=== PATIENT | male | born 1960 | race Caucasian/White ===

== ENCOUNTER → 2016-09-18 | Outpatient (CLI) | payer SELFPAY ==
[~2016-09-18] MED LIST: DILANTIN 100MG100 MG PO
== END ==
LOC: COL.RAD 11:13
DX: R07.89 Other chest pain (principal)

== ENCOUNTER → 2016-09-26 | Outpatient (CLI) | payer SELFPAY | LOC: COL.RAD 12:17 | DX: K80.80 Other cholelithiasis without obstruction (principal) | CPT/HCPCS: Q9967 ==

== ENCOUNTER 2017-05-23 11:32 | Emergency (ER) | payer SELFPAY ==
[2017-05-23 11:36] VITALS: TEMP 98.2
[2017-05-23 12:40] LABS: COLLECTION METHOD CLEAN CATCH
[2017-05-23 12:47] LABS: BASO # 0.1 (0.0-0.2); BASO % 2.2 % (0.0-2.0); EOS # 0.1 (0.0-0.7); EOS % 0.8 % (0-4.0); GRAN # 3.9 (1.4-6.5); GRAN % 65.6 % (42.2-75.2); HEMATOCRIT 40.4 % (42.0-52.0); HEMOGLOBIN 13.6 g/dl (13.5-18.0); LYMPH # 0.9 (1.2-3.4); LYMPH % 14.3 % (20.0-51.0); MEAN CELL VOLUME 98 fl (80.0-100.0); MEAN CORPUSCULAR HEMOGLOBIN 33 pg (27.0-31.0); MEAN CORPUSCULAR HGB CONC 34 g/dl (33.0-37.0); MONO % 16.3 % (1.7-9.3); PLATELET COUNT 100 K/mm3 (130-400); RED BLOOD COUNT 4.11 M/mm3 (4.20-5.60); REDCELL DISTRIBUTION WIDTH-CV 13.8 % (11.5-14.5)
[2017-05-23 12:56] LABS: ALANINE AMINOTRANSFERASE 51 U/L (21-72); ALBUMIN 4.5 gm/dL (3.5-5.0); ALKALINE PHOSPHATASE 110 U/L (50-136); ANION GAP 11 mmol/L (7-16); AST,SGOT 61 U/L (15-37); BILIRUBIN,TOTAL 0.8 mg/dL (0.0-1.0); BLOOD UREA NITROGEN 10 mg/dL (9-20); C-REACTIVE PROTEIN 0.6 mg/dL (0.0-0.9); CALCIUM 9.2 mg/dL (8.4-10.2); CARBON DIOXIDE 23 mmol/L (22-30); CHLORIDE 98 mmol/L (98-107); CREATININE, serum 0.82 mg/dL (0.66-1.25); GLUCOSE 177 mg/dL (74-106); MAGNESIUM 1.9 mg/dL (1.6-2.3); SODIUM 132 mmol/L (137-145)
[2017-05-23 12:57] LABS: MUCOUS Present /lpf; PH 6 (5-8); SQUAMOUS EPITHELIAL 0-2 /hpf; URINE APPEARANCE Cloudy; URINE BILIRUBIN Negative (NEGATIVE); URINE BLOOD 1+ (NEGATIVE); URINE COLOR Yellow; URINE GLUCOSE 3+ (NEGATIVE); URINE KETONE Negative (NEGATIVE); URINE LEUKOCYTE ESTERASE Negative (NEGATIVE); URINE NITRATE Negative (NEGATIVE); URINE PROTEIN(semi-quant) 2+ (NEGATIVE); URINE RBC 20-50 /hpf; URINE UROBILINOGEN Negative (NEGATIVE)
[2017-05-23 13:03] LABS: ALCOHOL(ethanol),MEDICAL < 10 mg/dL
[2017-05-23 13:03] LABS: URINE BACTERIA None Seen /hpf
[2017-05-23 13:07] LABS: TROPONIN-I < 0.012 ng/mL (0.000-0.034)
[2017-05-23 13:09] LABS: TRICYCLIC ANTIDEPRESS URINE NEGATIVE
[2017-05-23 13:10] LABS: PROLACTIN 23.5 ng/mL (3.7-17.9)
[2017-05-23] MEDS ORDERED: AMOXICILLIN 50500 MG PO (14:16)
[2017-05-23] MEDS ORDERED: DILANTIN 100MG100 MG PO (14:16)
[2017-05-23 15:16] VITALS: BP 146/81; PULSE 100
[2017-05-23] MEDS ORDERED: FLOMAX 0.40.4 MG/CAP PO (15:49)
== END 2017-05-23 16:19 | disposition home or self-care (01) ==
LOC: COL.ER 11:32
PROVIDERS: Emergency Medicine
DX: R56.9 Unspecified convulsions (principal); J32.9 Chronic sinusitis, unspecified; F17.210 Nicotine dependence, cigarettes, uncomplicated; Z90.89 Acquired absence of other organs
CPT/HCPCS: J2060; J7030; Q2009

== ENCOUNTER → 2017-06-04 | Outpatient (CLI) | payer SELFPAY ==
[~2017-06-04] MED LIST changes: +AMOXICILLIN 50500 MG PO; +FLOMAX 0.40.4 MG/CAP PO
[2017-06-04 15:33] LABS: HEMATOCRIT 41.1 % (42.0-52.0); HEMOGLOBIN 13.4 g/dl (13.5-18.0); MEAN CELL VOLUME 102 fl (80.0-100.0); MEAN CORPUSCULAR HEMOGLOBIN 33 pg (27.0-31.0); MEAN CORPUSCULAR HGB CONC 33 g/dl (33.0-37.0); MEAN PLATELET VOLUME 10.3 fl (7.4-10.4); PLATELET COUNT 261 K/mm3 (130-400); RED BLOOD COUNT 4.02 M/mm3 (4.20-5.60); REDCELL DISTRIBUTION WIDTH-CV 12.8 % (11.5-14.5)
[2017-06-04 15:34] LABS: ALBUMIN 3.8 gm/dL (3.5-5.0); BILIRUBIN,TOTAL 0.5 mg/dL (0.0-1.0); CALCIUM 9.3 mg/dL (8.4-10.2); CREATININE, serum 0.97 mg/dL (0.66-1.25); POTASSIUM 3.9 mmol/L (3.4-5.0); TOTAL PROTEIN 7.3 gm/dL (6.4-8.2)
[2017-06-04 16:03] LABS: TSH w REFLEX 2.83 uIU/mL (0.465-4.680)
== END ==
LOC: COL.LAB 12:05
PROVIDERS: Family Medicine
DX: L65.9 Nonscarring hair loss, unspecified (principal)

== ENCOUNTER 2017-06-17 14:54 | Emergency (ER) | payer SELFPAY ==
[~2017-06-17] VITALS: Ht 172.7 cm; Wt 77.3 kg
[2017-06-17 15:03] VITALS: BP 126/70; PULSE 71; TEMP 98
[2017-06-17] MEDS ORDERED: LIDOJEL UR ×2 (16:16→16:24)
== END 2017-06-17 16:33 | disposition home or self-care (01) ==
LOC: COL.ER 14:54
DX: N35.9 Urethral stricture, unspecified (principal); N40.0 Benign prostatic hyperplasia without lower urinary tract symptoms

== ENCOUNTER 2018-10-02 03:11 | Emergency (ER) | payer SELFPAY ==
[~2018-10-02] VITALS: Ht 172.7 cm; Wt 79.5 kg
[~2018-10-02 03:11] MED LIST changes: +LIDOJEL UR
[2018-10-02 03:23] VITALS: TEMP 98.7
[2018-10-02 03:32] LABS: HEMATOCRIT 39.6 % (42.0-52.0); HEMOGLOBIN 13.3 g/dl (13.5-18.0); MEAN CELL VOLUME 101 fl (80.0-100.0); MEAN CORPUSCULAR HEMOGLOBIN 34 pg (27.0-31.0); MEAN CORPUSCULAR HGB CONC 34 g/dl (33.0-37.0); PLATELET COUNT 83 K/mm3 (130-400); RED BLOOD COUNT 3.92 M/mm3 (4.20-5.60); REDCELL DISTRIBUTION WIDTH-CV 13.6 % (11.5-14.5)
[2018-10-02 03:36] LABS: INR 1.1 (0.8-3.0); PROTHROMBIN TIME 12.5 SECONDS (9.7-12.8)
[2018-10-02 03:39] LABS: ALANINE AMINOTRANSFERASE 190 U/L (21-72); ALKALINE PHOSPHATASE 81 U/L (50-136); ANION GAP 16 mmol/L (7-16); AST,SGOT 119 U/L (15-37); BILIRUBIN,TOTAL 0.5 mg/dL (0.0-1.0); BLOOD UREA NITROGEN 17 mg/dL (9-20); CALCIUM 9.8 mg/dL (8.4-10.2); CARBON DIOXIDE 19 mmol/L (22-30); CHLORIDE 104 mmol/L (98-107); CREATININE, serum 0.83 (0.66-1.25); GLUCOSE 120 mg/dL (74-106); PARTIAL THROMBOPLASTIN TIME 30.3 SECONDS (26.0-37.0); POTASSIUM 3.3 mmol/L (3.4-5.0); SODIUM 139 mmol/L (137-145); TOTAL PROTEIN 7.6 gm/dL (6.4-8.2)
[2018-10-02 03:52] LABS: TROPONIN-I < 0.012 ng/mL (0.000-0.035)
[2018-10-02 03:56] LABS: PROLACTIN 21.1 ng/mL (3.7-17.9)
[2018-10-02 04:15] LABS: COLLECTION METHOD CLEAN CATCH
[2018-10-02 04:20] LABS: MUCOUS Present /lpf; PH 5 (5-8); SQUAMOUS EPITHELIAL 0-2 /hpf; URINE APPEARANCE Clear; URINE BACTERIA None Seen /hpf; URINE BILIRUBIN Negative (NEGATIVE); URINE BLOOD 1+ (NEGATIVE); URINE COLOR Yellow; URINE GLUCOSE Negative (NEGATIVE); URINE KETONE Negative (NEGATIVE); URINE LEUKOCYTE ESTERASE Negative (NEGATIVE); URINE NITRATE Negative (NEGATIVE); URINE PROTEIN(semi-quant) Negative (NEGATIVE); URINE RBC 0-2 /hpf; URINE UROBILINOGEN Negative (NEGATIVE)
[2018-10-02 04:57] LABS: BAND 14 % (0-10); BASOPHIL 2 % (0-2); EOSINOPHIL 4 % (0-4); LYMPHOCYTE 25 % (20.0-51.0); NEUTROPHILS 38 % (42.0-75.2)
[2018-10-02 04:58] LABS: HYPOCHROMIA 1+; PLATELET ESTIMATE DECREASED (NORMAL)
[2018-10-02 12:11] VITALS: BP 105/74; PULSE 93
== END 2018-10-02 12:14 | disposition home or self-care (01) ==
LOC: COL.ER 03:11
PROVIDERS: Emergency Medicine
DX: S01.01XA Laceration without foreign body of scalp, initial encounter (principal); F17.210 Nicotine dependence, cigarettes, uncomplicated; F10.129 Alcohol abuse with intoxication, unspecified; Z23 Encounter for immunization; Y90.8 Blood alcohol level of 240 mg/100 ml or more; W19.XXXA Unspecified fall, initial encounter; Y92.59 Other trade areas as the place of occurrence of the external cause

== ENCOUNTER 2018-10-10 18:18 | Emergency (ER) | payer SELFPAY ==
[2018-10-10 18:23] VITALS: BP 135/61; PULSE 104; TEMP 98.5
== END 2018-10-10 18:33 | disposition home or self-care (01) ==
LOC: COL.ER 18:18
DX: S01.01XD Laceration without foreign body of scalp, subsequent encounter (principal); X58.XXXD Exposure to other specified factors, subsequent encounter

== ENCOUNTER 2019-01-03 13:09 | Emergency (ER) | payer OTHER ==
[~2019-01-03] VITALS: Ht 172.7 cm; Wt 79.5 kg
[2019-01-03] MEDS ORDERED: PRILOSEC 20MG20 MG PO (13:16)
[2019-01-03 13:17] VITALS: TEMP 100.1
[2019-01-03 13:27] LABS: BASO # 0.1 (0.0-0.2); BASO % 1.7 % (0.0-2.0); EOS % 0.6 % (0-4.0); GRAN % 64.4 % (42.2-75.2); HEMOGLOBIN 14.6 g/dl (13.5-18.0); LYMPH # 0.9 (1.2-3.4); LYMPH % 19.4 % (20.0-51.0); MEAN CELL VOLUME 97 fl (80.0-100.0); MEAN CORPUSCULAR HEMOGLOBIN 33 pg (27.0-31.0); MEAN CORPUSCULAR HGB CONC 34 g/dl (33.0-37.0); MEAN PLATELET VOLUME 10.4 fl (7.4-10.4); MONO # 0.6 (0.1-0.6); PLATELET COUNT 84 K/mm3 (130-400); RED BLOOD COUNT 4.42 M/mm3 (4.20-5.60); REDCELL DISTRIBUTION WIDTH-CV 13.4 % (11.5-14.5)
[2019-01-03 13:38] LABS: ALBUMIN 4.9 gm/dL (3.5-5.0); BILIRUBIN,TOTAL 0.8 mg/dL (0.0-1.0); CALCIUM 9.7 mg/dL (8.4-10.2); CREATININE, serum 0.6 (0.66-1.25); POTASSIUM 3.7 mmol/L (3.4-5.0); TOTAL PROTEIN 8.6 gm/dL (6.4-8.2)
[2019-01-03 13:50] LABS: COLLECTION METHOD CLEAN CATCH
[2019-01-03 13:56] LABS: MUCOUS Present /lpf; PH 5 (5-8); SQUAMOUS EPITHELIAL 0-2 /hpf; URINE APPEARANCE Cloudy; URINE BACTERIA Rare /hpf; URINE BILIRUBIN Negative (NEGATIVE); URINE BLOOD 2+ (NEGATIVE); URINE COLOR Yellow; URINE GLUCOSE Negative (NEGATIVE); URINE KETONE Trace (NEGATIVE); URINE LEUKOCYTE ESTERASE Negative (NEGATIVE); URINE NITRATE Negative (NEGATIVE); URINE PROTEIN(semi-quant) 2+ (NEGATIVE); URINE RBC 20-50 /hpf; URINE UROBILINOGEN Negative (NEGATIVE)
[2019-01-03 14:09] LABS: TRICYCLIC ANTIDEPRESS URINE NEGATIVE
[2019-01-03] MEDS ORDERED: CEFTIN500 MG PO (16:11)
[2019-01-03] MEDS ORDERED: KEPPRA 500MG500 MG PO (16:11)
[2019-01-03 17:04] VITALS: BP 154/101; PULSE 93
== END 2019-01-03 17:27 ==
LOC: COL.ER 13:09
PROVIDERS: Emergency Medicine
DX: G40.909 Epilepsy, unspecified, not intractable, without status epilepticus (principal); N39.0 Urinary tract infection, site not specified
CPT/HCPCS: A4216; J0696; J1953; J2060; J3411; J3475; J7030